=== PATIENT | male | born 1945 | race Caucasian/White ===

== ENCOUNTER 2017-04-10 14:16 | Emergency (ER) | payer MEDICARE, OTHER ==
[~2017-04-10] VITALS: Ht 172.7 cm; Wt 100.0 kg
[2017-04-10 14:19] VITALS: BP 145/70; PULSE 56; RESP 18; TEMP 97.8; O2SAT 95
--- NOTE | 2017-04-10 14:26 | PD ---
HPI Chief Complaint: GI Complaint Time Seen by Provider: 14:26 Travel History International Travel<30 days: No Contact w/Intl Traveler<30days: No Traveled to known affect area: No History of Present Illness HPI 72-year-old male with history of hypothyroidism, CAD, CABG, diabetes, CKD presents to emergency department for evaluation of constipation 2 days. Patient feels as though his abdomen is bloated. He has been having cramping pain. He states he is unable to pass "a little gas" but is struggling to have a bowel movement. Denies any nausea or vomiting. No fever or chills. Patient does not have any opiates medication. He has no other symptoms to report. PFSH Past Medical History Hx Anticoagulant Therapy: Yes Cardiovascular Problems: Yes Diabetes: Yes Social History Tobacco Use: No Allergies-Medications (Allergen,Severity, Reaction): Coded Allergies: No Known Allergies (Unverified , 04/10/17) Review of Systems Except as stated in HPI: all other systems reviewed are Neg Physical Exam Narrative GENERAL: Well-nourished male patient in no acute distress SKIN: Focused skin assessment warm/dry. HEAD: Atraumatic. Normocephalic. EYES: Pupils equal and round. No scleral icterus. No injection or drainage. ENT: No nasal bleeding or discharge. Mucous membranes pink and moist. NECK: Trachea midline. No JVD. CARDIOVASCULAR: Regular rate and rhythm. No murmur appreciated. RESPIRATORY: No accessory muscle use. Clear to auscultation. Breath sounds equal bilaterally. GASTROINTESTINAL: Abdomen rotund, soft, nontender. Hepatic and splenic margins not palpable. MUSCULOSKELETAL: No obvious deformities. No clubbing. No cyanosis. No edema. NEUROLOGICAL: Awake and alert. No obvious cranial nerve deficits. Motor grossly within normal limits. Normal speech. Data Data Last Documented VS Vital Signs Date Time Temp Pulse Resp B/P Pulse Ox O2 Delivery O2 Flow Rate FiO2 04/10/17 16:43 78 04/10/17 14:19 97.8 18 145/70 95 Orders Basic Metabolic Panel (Bmp) (04/10/17 14:58) Complete Blood Count With Diff (04/10/17 14:58) Prothrombin Time / Inr (Pt) (04/10/17 14:58) Act Partial Throm Time (Ptt) (04/10/17 14:58) Iv Access Insert/Monitor (04/10/17 14:58) Ecg Monitoring (04/10/17 14:58) Oximetry (04/10/17 14:58) Sodium Chlor 0.9% 1000 Ml Inj (Ns 1000 M (04/10/17 14:58) Sodium Chloride 0.9% Flush (Ns Flush) (04/10/17 15:00) Electrocardiogram (04/10/17 14:58) Morphine Inj (Morphine Inj) (04/10/17 16:15) Ondansetron Inj (Zofran Inj) (04/10/17 16:15) Ct Abd/Pel W/O Iv Contrast (04/10/17 14:58) Bucket, Enema Cleansing Ea (04/10/17 17:13) Labs Laboratory Tests Test 04/10/17 15:20 White Blood Count 9.4 TH/MM3 Red Blood Count 3.77 MIL/MM3 Hemoglobin 11.5 GM/DL Hematocrit 33.3 % Mean Corpuscular Volume 88.5 FL Mean Corpuscular Hemoglobin 30.6 PG Mean Corpuscular Hemoglobin 34.6 % Concent Red Cell Distribution Width 14.6 % Platelet Count 146 TH/MM3 Mean Platelet Volume 7.9 FL Neutrophils (%) (Auto) 81.7 % Lymphocytes (%) (Auto) 12.5 % Monocytes (%) (Auto) 4.2 % Eosinophils (%) (Auto) 1.3 % Basophils (%) (Auto) 0.3 % Neutrophils # (Auto) 7.7 TH/MM3 Lymphocytes # (Auto) 1.2 TH/MM3 Monocytes # (Auto) 0.4 TH/MM3 Eosinophils # (Auto) 0.1 TH/MM3 Basophils # (Auto) 0.0 TH/MM3 CBC Comment DIFF FINAL Differential Comment Prothrombin Time 10.8 SEC Prothromb Time International 1.0 RATIO Ratio Activated Partial 25.9 SEC Thromboplast Time Sodium Level 140 MEQ/L Potassium Level 4.3 MEQ/L Chloride Level 109 MEQ/L Carbon Dioxide Level 24.0 MEQ/L Anion Gap 7 MEQ/L Blood Urea Nitrogen 37 MG/DL Creatinine 2.82 MG/DL Estimat Glomerular Filtration 22 ML/MIN Rate Random Glucose 152 MG/DL Calcium Level 9.3 MG/DL MDM Medical Decision Making Medical Screen Exam Complete: Yes Emergency Medical Condition: Yes Medical Record Reviewed: Yes Differential Diagnosis Constipation versus impaction versus ileus versus obstruction Narrative Course 72-year-old male presents to the emergency department for evaluation of no bowel movement 2 days. Patient does have cramping and he feels as though his abdomen is distended however it is soft. CBC is without acute concern. CMP is with creatinine 2.82, GFR is 22. Patient states that this is his norm. CT imaging is completely inconsistent with mild constipation. There are no other acute findings on exam. Patient is given a soapsuds enema at bedside and is able to have bowel movement in a bedside commode. He states that this offers him relief. He would like to go home at this time. I have encouraged MiraLAX, adequate oral hydration, and increase fiber. He agrees to return immediately with any acute worsening of symptoms. Diagnosis Primary Impression: Constipation Qualified Code: K59.00 - Constipation, unspecified constipation type Referrals: Primary Care Physician Patient Instructions: Constipation (ED), General Instructions Additional Instructions: Maintain adequate oral hydration Increase fiber MiraLAX [id number]. One By mouth In the morning, and excess directed and one By mouth in the evening because directed until regular bowel movements. Stop if diarrhea occurs Follow-up with a primary care provider Return immediately with any acute worsening of symptoms Med/Other Pt SpecificInfo: No Change to Meds Disposition: 01 DISCHARGE HOME Condition: Stable Alessia Wong Apr 10, 2017 14:26
[2017-04-10] MEDS ORDERED: SODIUM CHLOR 0.9% 1000 ML INJ 1,000 ML IV SCH (14:58)
[2017-04-10] MEDS ORDERED: SODIUM CHLORIDE 0.9% FLUSH 10 ML FLUSH IV FLUSH PRN (15:00)
[2017-04-10 16:02] LABS: AUTOMATED NEUTROPHIL # 7.7 TH/MM3 (1.8-7.7); BASOPHIL % 0.3 % (0.0-2.0); EOSINOPHIL # 0.1 TH/MM3 (0-0.4); EOSINOPHIL % 1.3 % (0.0-4.0); HEMATOCRIT 33.3 % (39.0-51.0); HEMO FLAGS DIFF FINAL; LYMPH % 12.5 % (9.0-44.0); LYMPHOCYTE # 1.2 TH/MM3 (1.0-4.8); MEAN CELL VOLUME 88.5 FL (80.0-100.0); MEAN CORPUSCULAR HEMOGLOBIN 30.6 PG (27.0-34.0); MEAN CORPUSCULAR HGB CONC 34.6 % (32.0-36.0); MONO % 4.2 % (0.0-8.0); NEUT % 81.7 % (16.0-70.0); PLATELET COUNT 146 TH/MM3 (150-450); RED BLOOD COUNT 3.77 MIL/MM3 (4.50-5.90); RED CELL DISTRIBUTION WIDTH 14.6 % (11.6-17.2); WHITE BLOOD COUNT 9.4 TH/MM3 (4.0-11.0)
[2017-04-10] MEDS ORDERED: ONDANSETRON HCL 4 MG/2 ML VIAL IV PUSH ONE (16:15)
[2017-04-10] MEDS ORDERED: MORPHINE SULFATE 4 MG/ML INJ IV PUSH ONE (16:15)
[2017-04-10 16:18] LABS: POTASSIUM 4.3 MEQ/L (3.5-5.1)
[2017-04-10 16:41] LABS: APTT (PATIENT) 25.9 SEC (24.3-30.1); PROTHROMBIN TIME - PATIENT 10.8 SEC (9.8-11.6)
[2017-04-10 16:43] VITALS: PULSE 78
--- NOTE | 2017-04-10 17:08 | RADRPT ---
EXAM DATE/TIME: 04/10/2017 16:44 [facility] COMPARISON: No previous studies available for comparison. INDICATIONS : Constipation and lower abdomen pain for two days. ORAL CONTRAST: No oral contrast ingested. RADIATION DOSE: 14.61 CTDIvol (mGy) MEDICAL HISTORY : Cardiovascular disease. Hypertension. Carcinoma, prostate.diabetes SURGICAL HISTORY : CABG ENCOUNTER: Initial ACUITY: 1 day PAIN SCALE: 7/10 LOCATION: Bilateral lower quadrant abdomen TECHNIQUE: Volumetric scanning of the abdomen and pelvis was performed. Using automated exposure control and ad justment of the mA and/or kV according to patient size, radiation dose was kept as low as reasonably achievable to obtain optimal diagnostic quality images. DICOM format image data is available electro nically for review and comparison. FINDINGS: LOWER LUNGS: Minimal bibasal atelectasis. LIVER: Homogeneous density without lesion. There is no dilation of the biliary tree. No calcified gallston es. SPLEEN: Splenic calcifications in the spleen consistent with prior granulomatous disease. The spleen is other matt unremarkable. PANCREAS: Within normal limits. KIDNEYS: Normal in size and shape. There is no mass, stone, or hydronephrosis. ADRENAL GLANDS: Within normal limits. VASCULAR: There is no aortic aneurysm. BOWEL/MESENTERY: Appendix is visualized and normal in appearance. Moderate amount of stool within the rectum. Scattere d colonic diverticula in the descending colon. Bowel otherwise grossly unremarkable without evidence for obstruction. No significant free fluid or fluid collection in the abdomen. ABDOMINAL WALL: Within normal limits. RETROPERITONEUM: There is no lymphadenopathy. BLADDER: No wall thickening or mass. REPRODUCTIVE: Radiation seeds are in the prostate. INGUINAL: Small fat containing left inguinal hernia. MUSCULOSKELETAL: Within normal limits for patient age. CONCLUSION: 1. Findings consistent with mild constipation. No evidence for bowel obstruction. 2. Normal appendix. 3. Otherwise, no definitive findings to explain patient's abdominal pain. Sylvester Lopez MD on April 10, 2017 at 17:00 Board Certified Radiologist. This report was verified electronically.
--- NOTE | 2017-04-11 13:23 | EKG ---
Date Performed: 04/10/2017 Time Performed: 16:20:46 PTAGE: 72 years EKG: Sinus rhythm WITH FIRST DEGREE AV BLOCK RIGHT BUNDLE BRANCH BLOCK ABNORMAL ECG PREVIOUS TRACING : 05/31/2001 06.29 Compared to prior tracing no significant change DOCTOR: Macho Partida Interpretating Date/Time 04/11/2017 13:18:11
== END 2017-04-10 18:34 | disposition home or self-care (01) ==
LOC: NEPD 14:16
DX: K59.00 Constipation, unspecified (principal); R94.31 Abnormal electrocardiogram [ECG] [EKG]; I25.10 Atherosclerotic heart disease of native coronary artery without angina pectoris; I12.9 Hypertensive chronic kidney disease with stage 1 through stage 4 chronic kidney disease, or unspecified chronic kidney disease; E11.22 Type 2 diabetes mellitus with diabetic chronic kidney disease; N18.9 Chronic kidney disease, unspecified; Z95.1 Presence of aortocoronary bypass graft
CPT/HCPCS: 74176; 80048; 85025; 85610; 85730; 93005; 96374; 96375; 99285; J2270; J2405; J7030